=== PATIENT | male | born 1980 | race Caucasian/White ===

== ENCOUNTER → 2021-09-09 | Outpatient (CLI) | payer BC ==
--- NOTE | 2021-09-09 16:33 | Diagnostic Imaging Report ---
PROCEDURE: US Thyroid. TECHNIQUE: Multiple Real-time grayscale images were obtained of the thyroid in various projections. INDICATION: Abnormal thyroid function test. FINDINGS: The right lobe of the thyroid is enlarged measuring 6.4 x 1.8 x 2.3 cm. The left lobe measures 3.2 x 1.9 x 0.9 cm. There appears to be a somewhat heterogeneous hypoechoic nodule in the lower pole of the right lobe of the thyroid measuring 1.5 x 1.7 x 1.1 cm. No internal calcifications are seen. The left lobe is unremarkable. IMPRESSION: Right lower pole thyroid nodule, indeterminate. Fine needle aspiration is recommended for further evaluation. Dictated by: Dictated on workstation # [id number]
== END ==
LOC: RAD 13:00
PROVIDERS: ATTEND Family Medicine
DX: E04.1 Nontoxic single thyroid nodule (principal)
CPT/HCPCS: 76536

== ENCOUNTER → 2022-11-08 | Outpatient (CLI) | payer BC ==
--- NOTE | 2022-11-08 14:38 | Diagnostic Imaging Report ---
PROCEDURE: US Thyroid. TECHNIQUE: Multiple real-time grayscale images were obtained of the thyroid in various projections. INDICATION: Thyroid mass. FINDINGS: Both lobes as well as the isthmus are diffusely heterogeneous in echotexture. The right is enlarged, 6.5 x 2.3 x 2.2 cm, unchanged in size from prior. Lower pole of the right lobe contains a hypoechoic solid nodule measuring 1.9 x 1.5 cm today, previously 1.7 x 1.5 cm. No new mass. The left lobe was nonfocal, but given its heterogeneity, additional smaller lesions could be obscured easily. The left lobe measures 1.9 x 0.7 x 0.7 cm and is smaller than on prior when it had measured 3.2 x 1.9 x 1.9 cm. IMPRESSION: Diffusely heterogeneous thyroid with right lobe thyromegaly and left lobe volume loss with no substantial change in the appearance of the solid hypoechoic lower pole right lobe mass. No new lesion. Dictated by: Dictated on workstation # [id number]
== END ==
LOC: RAD 07:23
PROVIDERS: ATTEND Family Medicine
DX: E01.0 Iodine-deficiency related diffuse (endemic) goiter (principal)
CPT/HCPCS: 76536

== ENCOUNTER 2023-04-08 23:19 | Emergency (ER) | payer BC ==
--- NOTE | 2023-04-08 23:33 | ED General ---
General Chief Complaint: Chest Pain Stated Complaint: SOB,CP Source of Information: Patient Exam Limitations: No Limitations History of Present Illness Date Seen by Provider: Apr 08, 2023 Time Seen by Provider: 23:25 Initial Comments 42-year-old male presents for right upper quadrant, right lower chest pain. Symptoms started an hour prior to arrival. Described as constant dull ache just below his right ribs with episodes of sharp pain with deep inspiration. No fevers chills nausea or vomiting. No recent illness. No changes in bowel or bladder habits. He is never had similar symptoms in the past. All other systems reviewed and negative except documented per HPI. Voice recognition software was used to help create this chart Allergies and Home Medications Allergies Coded Allergies: No Known Drug Allergies (Unverified , 04/08/23) Patient Home Medication List Home Medication List Reviewed: Yes Review of Systems Review of Systems Constitutional: see HPI Past Uzmrkaw-Dgzawl-Prfben Hx Patient Social History Tobacco Use?: No Use of E-Cig and/or Vaping dev: No Substance use?: No Alcohol Use?: No Physical Exam Vital Signs Capillary Refill : Height, Weight, BMI Height: '" Weight: lbs. oz. kg; BMI Method: General Appearance: No Apparent Distress, WD/WN HEENT: Normal ENT Inspection, Pharynx Normal Neck: Normal Inspection, Non Tender, Supple Respiratory: Chest Non Tender, Lungs Clear, Normal Breath Sounds, No Accessory Muscle Use, No Respiratory Distress Cardiovascular: Regular Rate, Rhythm, No Murmur, Normal Peripheral Pulses Gastrointestinal: Normal Bowel Sounds, No Organomegaly, No Pulsatile Mass, Soft, Tenderness (Tenderness palpation of the right upper quadrant. Positive Carmona sign. Voluntary guarding without any rebound tenderness.) Extremity: Normal Capillary Refill, Non Tender, No Calf Tenderness Neurologic/Psychiatric: Alert, Oriented x3 Progress/Results/Core Measures Suspected Sepsis SIRS Temperature: Pulse: Respiratory Rate: Laboratory Tests 04/08/23 23:45: White Blood Count 9.7 Blood Pressure / Mean: Laboratory Tests 04/08/23 23:45: Creatinine 1.05, Platelet Count 216, Total Bilirubin 0.4 Results/Orders Lab Results Laboratory Tests Test 04/08/23 23:45 Range/Units White Blood Count 9.7 4.3-11.0 10^3/uL Red Blood Count 4.97 4.30-5.52 10^6/uL Hemoglobin 15.9 13.3-17.7 g/dL Hematocrit 46 40-54 % Mean Corpuscular Volume 93 80-99 fL Mean Corpuscular Hemoglobin 32 25-34 pg Mean Corpuscular Hemoglobin Concent 35 32-36 g/dL Red Cell Distribution Width 13.0 10.0-14.5 % Platelet Count 216 130-400 10^3/uL Mean Platelet Volume 9.5 9.0-12.2 fL Immature Granulocyte % (Auto) 0 % Neutrophils (%) (Auto) 59 42-75 % Lymphocytes (%) (Auto) 28 12-44 % Monocytes (%) (Auto) 7 0-12 % Eosinophils (%) (Auto) 4 0-10 % Basophils (%) (Auto) 1 0-10 % Neutrophils # (Auto) 5.7 1.8-7.8 10^3/uL Lymphocytes # (Auto) 2.7 1.0-4.0 10^3/uL Monocytes # (Auto) 0.7 0.0-1.0 10^3/uL Eosinophils # (Auto) 0.4 H 0.0-0.3 10^3/uL Basophils # (Auto) 0.1 0.0-0.1 10^3/uL Immature Granulocyte # (Auto) 0.0 0.0-0.1 10^3/uL Sodium Level 142 135-145 MMOL/L Potassium Level 3.7 3.6-5.0 MMOL/L Chloride Level 109 H 98-107 MMOL/L Carbon Dioxide Level 21 21-32 MMOL/L Anion Gap 12 5-14 MMOL/L Blood Urea Nitrogen 7 7-18 MG/DL Creatinine 1.05 0.60-1.30 MG/DL Estimat Glomerular Filtration Rate 91 BUN/Creatinine Ratio 7 Glucose Level 99 70-105 MG/DL Calcium Level 9.2 8.5-10.1 MG/DL Corrected Calcium 8.8 8.5-10.1 MG/DL Total Bilirubin 0.4 0.1-1.0 MG/DL Aspartate Amino Transf (AST/SGOT) 20 5-34 U/L Alanine Aminotransferase (ALT/SGPT) 21 0-55 U/L Alkaline Phosphatase 67 40-136 U/L Total Protein 7.5 6.4-8.2 GM/DL Albumin 4.5 3.2-4.5 GM/DL Lipase 17 8-78 U/L My Orders Orders - BECKIE DAVIES DO Ekg Tracing (04/08/23 23:25) Comprehensive Metabolic Panel (04/08/23 23:31) Lipase (04/08/23 23:31) Troponin I Sawyer (04/08/23 23:31) Ekg Tracing (04/08/23 23:31) Chest 1 View, Ap/Pa Only (04/08/23 23:31) Cbc With Automated Diff (04/08/23 23:31) Ketorolac Injection (Toradol Injection) (04/08/23 23:45) Medications Given in ED Current Medications Medications Dose Ordered Sig/Roxi Route Start Time Stop Time Status Last Admin Dose Admin Ketorolac Tromethamine 15 mg ONCE ONCE IVP 04/08/23 23:45 04/08/23 23:46 DC 04/08/23 23:47 15 MG Vital Signs/I&O Capillary Refill : ECG Comment Sinus rhythm with a rate of 70 bpm. Normal intervals. Normal axis. Incomplete right bundle branch block. No ectopy. No STEMI. No ST or T wave abnormalities. Departure Communication (Admissions) Independently reviewed the [facility] chest x-ray and is negative for any acute findings in the, cardiac findings or bony abnormalities. Patient's pain is in his abdomen. Abdomen abundance of caution we went ahead and did a cardiac work-up which is negative. LFTs are negative, lipase is negative. White blood cell count is normal. I think this is likely coming from his gallbladder however there is no evidence of acute cholecystitis or cholelithiasis that is obstructive at this time. His pain is improved with IV Toradol. No indication for further imaging at this time. He is discharged home in stable condition with supportive care recommendations for bland diet and general surgery follow-up should his symptoms persist. Impression Primary Impression: RUQ abdominal pain Disposition: 01 HOME, SELF-CARE Condition: Stable Departure-Patient Inst. Referrals: [place] RINALDI MD, JACQUELINE S DO (PCP/Family) Primary Care Physician Patient Instructions: Abdominal Pain, Adult ED Add. Discharge Instructions: You were seen in the emergency department today for pain under your right ribs. No emergent medical conditions identified. I think this might be related to your gallbladder. Alternate ibuprofen and Tylenol as needed for pain and maintain a bland diet as discussed here in the emergency department. Should your symptoms persist I recommend you follow-up with a general surgeon by calling to schedule an appointment. The name has been provided for you. Return to the emergency department for any severe concerns. All discharge instructions reviewed with patient and/or family. Voiced understanding. BECKIE DAVIES DO Apr 08, 2023 23:33
[2023-04-08] MEDS ORDERED: KETOROLAC 15 MG/ML VIAL IVP ONE (23:45)
[2023-04-08 23:52] LABS: BASOPHILS # (AUTO) 0.1 10^3/uL (0.0-0.1); BASOPHILS % (AUTO) 1 % (0-10); EOSINOPHILS # (AUTO) 0.4 10^3/uL (0.0-0.3); EOSINOPHILS % (AUTO) 4 % (0-10); HEMATOCRIT 46 % (40-54); HEMOGLOBIN 15.9 g/dL (13.3-17.7); LYMPHOCYTES # (AUTO) 2.7 10^3/uL (1.0-4.0); LYMPHOCYTES % (AUTO) 28 % (12-44); MEAN CORPUSCULAR HEMOGLOBIN 32 pg (25-34); MEAN CORPUSCULAR HGB CONC 35 g/dL (32-36); MEAN CORPUSCULAR VOLUME 93 fL (80-99); MEAN PLATELET VOLUME 9.5 fL (9.0-12.2); MONOCYTES # (AUTO) 0.7 10^3/uL (0.0-1.0); MONOCYTES % (AUTO) 7 % (0-12); NEUTROPHILS # (AUTO) 5.7 10^3/uL (1.8-7.8); NEUTROPHILS % (AUTO) 59 % (42-75); PLATELET COUNT 216 10^3/uL (130-400); WHITE BLOOD COUNT 9.7 10^3/uL (4.3-11.0)
[2023-04-09 00:02] LABS: ALBUMIN 4.5 GM/DL (3.2-4.5); CHLORIDE 109 MMOL/L (98-107); POTASSIUM 3.7 MMOL/L (3.6-5.0); SODIUM 142 MMOL/L (135-145)
[2023-04-09 00:03] LABS: CALCIUM 9.2 MG/DL (8.5-10.1)
[2023-04-09 00:05] LABS: GLUCOSE 99 MG/DL (70-105); TOTAL PROTEIN 7.5 GM/DL (6.4-8.2)
[2023-04-09 00:06] LABS: CARBON DIOXIDE 21 MMOL/L (21-32)
[2023-04-09 00:07] LABS: BILIRUBIN,TOTAL 0.4 MG/DL (0.1-1.0)
[2023-04-09 00:08] LABS: ALKALINE PHOSPHATASE 67 U/L (40-136)
[2023-04-09 00:09] LABS: CREATININE SERUM 1.05 MG/DL (0.60-1.30); GFR ESTIMATED 91
[2023-04-09 00:10] LABS: BUN/CREATININE RATIO 7
[2023-04-09 00:11] LABS: ALANINE AMINOTRANSFERASE 21 U/L (0-55)
[2023-04-09 00:12] LABS: LIPASE 17 U/L (8-78)
[2023-04-09 00:35] VITALS: BP 107/70
--- NOTE | 2023-04-09 07:02 | Diagnostic Imaging Report ---
INDICATION: Chest pain. COMPARISON: None. DISCUSSION: Single portable upright view of the chest was obtained. Mild infiltrates noted along the right medial hemidiaphragm, possibly atelectasis or pneumonia. Normal heart size. No pleural fluid or pneumothorax. No osseous abnormality. IMPRESSION: Infiltrates near the right lung base, likely the right middle lobe, which could be seen with atelectasis or pneumonia. Dictated by: Dictated on workstation # [id number]
== END 2023-04-09 00:35 | disposition home or self-care (01) ==
LOC: EDUNIT# 23:19 → ER 23:21
DX: R10.11 Right upper quadrant pain (principal)
CPT/HCPCS: 36415; 71045; 80053; 83690; 84484; 85025; 93005